=== PATIENT | female | born 1955 | race African-American/Black ===

== ENCOUNTER 2018-07-17 15:55 | Emergency (ER) | payer BC ==
[~2018-07-17 15:55] MED LIST: ISOVUE-370 76%-LOCM 1 ML ONE
--- NOTE | 2018-07-17 16:12 | CT ---
CT BRAIN NONCONTRAST: 07/17/18 at 4:01 p.m. HISTORY: 62-year-old female undergoing acute stroke. Right upper extremity weakness. Altered mental status, un able to follow commands. Dr. Mackey verbally gave this acute stroke alert protocol report to Dr. Alves at 4:06 p.m. on 07/17/18. FINDINGS: There is a tiny focal hyperdensity in the M1 segment of the left middle cerebral artery. There is no midline shift or any other mass effect. There is no evidence of acute intracranial hemorrhage, large cortical infarct, obstructive hydrocephalus, or extraaxial fluid collection. The calvarium is intac t. IMPRESSION: 1. Probable thromboembolus in the left middle cerebral artery. 2. No acute intracranial hemorrhage or mass effect. Code CR jn [] POS: [facility]
[2018-07-17 16:16] LABS: Mean Corpuscular HGB CONC 31.9 g/dL (32.0-36.0); Mean Corpuscular Hemoglobin 30.8 pg (27.0-31.0); Mean Corpuscular Volume 96.7 fL (78.0-98.0); Mean Platelet Volume 9.4 fL (7.4-10.4); Platelet Count 122 thou/uL (130-400); RBC Distribution Width 13.2 % (11.5-14.5); Red Blood Cell (RBC) Count 4.21 mill/uL (4.20-5.40); White Blood Cell (WBC) Count 4.2 thou/uL (4.8-10.8)
[2018-07-17 16:21] LABS: INR-International Normal Ratio 1.1; Prothrombin Time 14.4 SEC (12.0-14.7)
[2018-07-17 16:36] LABS: Anisocytosis SLIGHT = 6-15 cells (100X) (0-5/hpf); Band 3 % (5-11); Elliptocytes SLIGHT = 2-5 cells (100X) (0-1/hpf); Eosinophils 1 % (0-10); Lymphocytes 58 % (21-51); MDiff Complete? YES; Monocytes 4 % (0-10); Neutrophil 34 % (42-75); PLT Morphology Comment Appears Decreased; Poikilocytosis SLIGHT = 6-15 cells (100X) (0-5/hpf)
[2018-07-17 16:42] LABS: ALT (SGPT) 15 U/L (8-55); AST (SGOT) 38 U/L (5-34); Albumin 3.7 g/dL (3.5-5.0); Alkaline Phosphatase 57 U/L (40-150); Anion Gap 18 mmol/L (10-20); BUN (Urea Nitrogen) 18 mg/dL (9.8-20.1); Bilirubin, Total 0.9 mg/dL (0.2-1.2); Calc. Creatinine Clearance 0 mL/min (70-130); Calcium 9.5 mg/dL (7.8-10.44); Carbon Dioxide 19 mmol/L (22-29); Chloride 109 mmol/L (98-107); Estimated GFR-MDRD 75; Globulin 3.1 g/dL (2.4-3.5); Glucose 98 mg/dL (70-105); Potassium 4.5 mmol/L (3.5-5.1); Protein, Total 6.8 g/dL (6.0-8.3); Sodium 141 mmol/L (136-145)
--- NOTE | 2018-07-17 16:48 | CT ---
CT ANGIOGRAM OF HEAD WITH CONTRAST CT ANGIOGRAM OF NECK WITH CONTRAST: 07/17/18 at 4:11 p.m. HISTORY: 62-year-old female with acute stroke: Right upper extremity weakness and altered mental status. Dr. Mackey verbally gave this stroke alert protocol report by telephone to Dr. Alves of the Emergency Department of 4:26 p.m. on 07/17/19. TECHNIQUE: IV contrast injection of 100 mL of Isovue 370. Arterial bolus chasing technique scan from aortopulmon ic window to vertex of head. Coronal and sagittal 3D MIP reconstructions. FINDINGS: There is filling defect causing absence of contrast opacification of the majority of the M1 segment o f the left middle cerebral artery. There is contrast opacification of some, but absence of others, of the left MCA trifurcation branches. Bilateral A1 and A2 segments of the anterior cerebral arteries, right middle cerebral artery, and the posterior intracranial circulation, appear normal. Bovine origin of left common carotid. No high gra de stenosis identified involving brachiocephalic, right subclavian, or bilateral common carotid arter ies. The presence of multiple perivertebral collateral veins obscure portions of the bilateral cervic al vertebral arteries. Left vertebral artery is dominant. Right vertebral artery is diminutive. Calci fied atheromatous plaque at the bilateral carotid bulbs, right greater than left. No high grade acqui red stenosis identified in cervical segments of internal carotid arteries. IMPRESSION: Acute thrombus in the M1 segment of the left middle cerebral artery. Code CR POS: [facility]
[2018-07-17 17:03] LABS: Troponin I 0.018 ng/mL (< 0.028)
== END 2018-07-17 17:19 | disposition short-term general hospital (02) ==
LOC: ERS 15:55
DX: I63.412 Cerebral infarction due to embolism of left middle cerebral artery (principal); R47.01 Aphasia; I69.351 Hemiplegia and hemiparesis following cerebral infarction affecting right dominant side; I11.0 Hypertensive heart disease with heart failure; I50.9 Heart failure, unspecified; Z87.891 Personal history of nicotine dependence; Z79.899 Other long term (current) drug therapy
CPT/HCPCS: 36416; 70450; 70496; 70498; 80053; 82553; 84484; 85025; 85610; 85730; 96365; J2997